=== PATIENT | female | born 1970 | race Caucasian/White ===

== ENCOUNTER 2017-01-02 16:28 | Emergency (ER) | payer BC ==
[~2017-01-02] VITALS: Ht 157.5 cm; Wt 56.8 kg
[~2017-01-02 16:28] MED LIST: ASPIR 8181 M1 PO; BENADRYL50 MG PO; BUTALB-APAP-CA1 EACH PO; DECADRON4 MG PO; DILAUDID2 MG PO; Dilaudid PO; ESTROGEN; KYTRIL1 MG PO; LORAZEPAM0.5 MG PO; MOBIC7.5 MG PO; NAPROSYN500 MG PO; PREDNISONE20 MG PO; PROMETHAZINE HC25 M1 PR; SUMATRIPTAN SUC25 MG PO; TRANSDERM-SCO1 PATCH TD; VALIUM5 MG PO; VICODIN,LORT1 TABLET PO; ZOFRAN ODT4 MG PO; ZOFRAN4 MG PO; ZOFRAN8 MG PO; [UNRECOGNIZED DRUG - REMARK]
[2017-01-02 22:11] VITALS: BP 102/62
== END 2017-01-02 22:11 | disposition home or self-care (01) ==
LOC: EME 16:28
DX: R51 Headache (principal); J01.30 Acute sphenoidal sinusitis, unspecified; F32.9 Major depressive disorder, single episode, unspecified; Z85.3 Personal history of malignant neoplasm of breast; Z90.13 Acquired absence of bilateral breasts and nipples; Z90.710 Acquired absence of both cervix and uterus
CPT/HCPCS: 70450; 99281; 99285; J1200; J1885; J2765; J7030

== ENCOUNTER 2017-04-04 04:54 | Emergency (ER) | payer BC ==
[~2017-04-04] VITALS: Ht 157.5 cm; Wt 59.6 kg
[2017-04-04 05:36] LABS: HEMATOCRIT 39.3 % (36.0-46.0); HEMOGLOBIN 13.2 G/DL (11.9-15.5); MCH 30.1 PG (29.0-34.0); MCHC 33.6 G/DL (30.0-36.0); MCV 89.5 FL (83-99); PLATELET COUNT 136 K/uL (156-360); RBC DIS.WIDTH-CV 12.6 % (11.8-14.6); RBC DIS.WIDTH-SD 41.5 % (39-53); RED BLOOD COUNT 4.39 M/uL (3.80-5.20); WHITE BLOOD COUNT 4.2 K/uL (4.1-10.2)
[2017-04-04 05:48] LABS: CHLORIDE 107 mEq/L (99-109); SODIUM 140 mEq/L (136-147)
[2017-04-04 05:49] LABS: GLUCOSE 83 mg/dL (70-99)
[2017-04-04 05:51] LABS: INTER. NORMALIZED RATIO 0.9
[2017-04-04 05:53] LABS: CREATININE 0.7 mg/dL (0.6-1.3); GFR ESTIMATE (CALCULATED) > 59 mL/min/
[2017-04-04 05:54] LABS: PTT 30.9 SEC (25-37); UREA NITROGEN (BUN) 13 mg/dL (9-23)
[2017-04-04 06:35] VITALS: BP 107/62
== END 2017-04-04 06:37 | disposition home or self-care (01) ==
LOC: EME 04:54
PROVIDERS: Physician Assistant
DX: R21 Rash and other nonspecific skin eruption (principal); M79.89 Other specified soft tissue disorders; M79.601 Pain in right arm; Z85.3 Personal history of malignant neoplasm of breast; Z90.13 Acquired absence of bilateral breasts and nipples; Z90.710 Acquired absence of both cervix and uterus
CPT/HCPCS: 80048; 85027; 85610; 85730; 93971; 99281; 99284